=== PATIENT | female | born 1940 | race Caucasian/White ===

== ENCOUNTER → 2016-10-06 | Outpatient (CLI) | payer MEDICARE, BC ==
[~2016-10-06] MED LIST: ATOR10TA65 PO; CALC0.5C4 PO; CALC600T11 PO; MAGN400T22 PO; METO50TA16 PO; MULT1CAP20 PO; UBID1CAP25 PO; VIT1CAPS15 PO
--- NOTE | 2016-10-06 11:30 | RADRPT ---
PROCEDURE: XR right knee. CLINICAL INDICATION: Knee pain TECHNIQUE: AP weightbearing, PA weightbearing, lateral weightbearing and sunrise views are availab le for review. COMPARISON: None available FINDINGS: There is moderate to severe osteoarthrosis involving the lateral tibial femoral compartment and mild osteoarthrosis involving the patellofemoral compartment. This is associated with joint space narrow ing, subchondral sclerosis and osteophytosis. There is otherwise normal mineralization, architecture and alignment. No fractures are identified. No osseous lesions are identified. The soft tissues are unremarkable. IMPRESSION: Moderate to severe osteoarthrosis involving the lateral tibial femoral compartment and mild osteoart hrosis involving the patellofemoral compartment. RPTAT: HGDB .Ronaldo Ryan MD, MD Date Time Electronically viewed and signed by .Ronaldo Ryan MD, on 10/06/2016 11:30 .B/
== END | disposition home or self-care (01) ==
LOC: HKI 09:54
PROVIDERS: ATTEND Orthopaedic Surgery
DX: M25.561 Pain in right knee (principal); M17.11 Unilateral primary osteoarthritis, right knee; Z96.652 Presence of left artificial knee joint
CPT/HCPCS: 73564; G0463

== ENCOUNTER → 2016-10-23 | Outpatient (CLI) | payer MEDICARE, BC ==
--- NOTE | 2016-10-23 16:45 | RADRPT ---
PROCEDURE: Limited x-ray of both lower extremities. CLINICAL INDICATION: Bilateral leg pain. TECHNIQUE: Single frontal view of both lower extremities was obtained from the hips to the calves. COMPARISON: 12/17/2013. FINDINGS: There are bilateral total hip arthroplasties which appears satisfactory. There are moderate degener ative changes of the right knee with valgus deformity. There is a left knee total arthroplasty. IMPRESSION: 1. 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 2. Moderate degenerative changes of the right knee with valgus deformity. RPTAT: QQ .Denny Harris MD, MD Date Time Electronically viewed and signed by .Denny Harris MD, on 10/23/2016 16:45 .R/
== END | disposition home or self-care (01) ==
LOC: HKI 10:22
PROVIDERS: ATTEND Orthopaedic Surgery
DX: M25.561 Pain in right knee (principal); M17.11 Unilateral primary osteoarthritis, right knee; Z96.652 Presence of left artificial knee joint; Z96.643 Presence of artificial hip joint, bilateral
CPT/HCPCS: 77073; G0463; 87081

== ENCOUNTER 2016-10-31 07:00 | Inpatient (IN) | payer MEDICARE, BC ==
[~2016-10-31] VITALS: Ht 167.6 cm; Wt 66.2 kg
[2016-10-31] VITALS (28 sets, daily range): BP systolic 115–176; BP diastolic 55–115; PULSE 68–92; RESP 14–22; Ht 167.6 cm; Wt 66.2 kg
[~2016-10-31 07:00] MED LIST changes: +DEXAMETHASONE 4 MG/ML 1 ML INJ ONE
[2016-10-31] MEDS ORDERED: EXPAREL NOTE (BUPIVICAINE LIPOSOMAL) XX SCH (09:00)
[2016-10-31] MEDS ORDERED: CEFAZOLIN 2GM/50 ML (PMX) 50 ML X1 BEFORE INCISION IVPB ONE (09:00)
[2016-10-31] MEDS ORDERED: SOD CHLORIDE 0.9% IV ONE (09:00)
[2016-10-31] MEDS ORDERED: traMADOL 50 MG TAB X 1 DOSE PO ONE (09:00)
[2016-10-31] MEDS ORDERED: BUPIVACAINE LIPOSOME/PF 266 MG/20 ML VIAL INFIL ONE (09:00)
[2016-10-31] MEDS ORDERED: TRANEXAMIC ACID 680 MG in SOD CHLORIDE 0.9% 100 ML IVPB ONE (09:00)
[2016-10-31] MEDS ORDERED: PAIN COCKTAIL-CEFUROXIME IRR ONE ×7 (09:00)
[2016-10-31] MEDS ORDERED: TRANEXAMIC ACID IV ONE (09:00)
[2016-10-31] MEDS ORDERED: ONDANSETRON 4 MG INJ IV SCH (09:00)
[2016-10-31] MEDS: LACTATED RINGER'S 1,000 ML IV SCH ×3 (09:00→19:00)
[2016-10-31] MEDS ORDERED: oxyCODONE (CR) 10 MG TAB [oxyCONTIN] X1 DOSE PO ONE (09:00)
[2016-10-31] MEDS ORDERED: CELECOXIB 400 MG PO X1 DOSE PO ONE (09:00)
[2016-10-31] MEDS ORDERED: TRANEXAMIC ACID 680 MG in SOD CHLORIDE 0.9% 93.2 ML IV ONE (09:00)
[2016-10-31] MEDS ORDERED: PREGABALIN 300 MG PO X1 PO ONE (09:00)
[2016-10-31] MEDS ORDERED: CALC0.255 PO (11:13)
[2016-10-31] MEDS ORDERED: CALC500T11 PO (11:14)
[2016-10-31] MEDS ORDERED: SODIUM CL BACTERIOSTATIC 30 ML INJ ONE (12:23)
[2016-10-31] MEDS ORDERED: VANCOMYCIN 1 GM INJ ONE (12:23)
[2016-10-31] MEDS ORDERED: POLYMYXIN B 500000 UNIT INJ ONE (12:23)
--- NOTE | 2016-10-31 13:02 | HPN ---
Date/Time of Note Date/Time of Note DATE: 10/31/16 TIME: 13:00 Interval H&P Admission Note Pt. seen H&P reviewed: No system changes No change from H&P on 10/23/16 by RADHA Caldwell MD Oct 31, 2016 13:02
[2016-10-31] MEDS ORDERED: BACITRACIN 50000 UNITS INJ ONE (13:07)
[2016-10-31] MEDS ORDERED: METOCLOPRAMIDE 10 MG INJ ONE (13:21)
[2016-10-31] MEDS ORDERED: MIDAZOLAM 1 MG/ML 2 ML INJ ONE (13:21)
[2016-10-31] MEDS ORDERED: FENTAnyl 50 MCG/ML VIAL ONE (13:22)
[2016-10-31] MEDS ORDERED: CEFAZOLIN 1 GM INJ ONE (13:38)
[2016-10-31] MEDS ORDERED: DEXAMETHASONE 4 MG/ML 1 ML INJ ONE (13:43)
[2016-10-31] MEDS ORDERED: METOCLOPRAMIDE 10 MG INJ IV PRN (14:00)
[2016-10-31] MEDS ORDERED: EPHEDrine SULFATE 50 MG/5 ML SYG IV PRN (14:00)
[2016-10-31] MEDS ORDERED: hydrALAzine 20 MG INJ IV PRN (14:00)
[2016-10-31] MEDS ORDERED: HYDROmorphONE (0.2 MG/ML) 10ML SYG IV PRN ×3 (14:00)
[2016-10-31] MEDS ORDERED: LABETALOL HCL 20MG INJ IV PRN (14:00)
[2016-10-31] MEDS ORDERED: MEPERIDINE 25 MG INJ IV PRN (14:00)
[2016-10-31] MEDS ORDERED: ONDANSETRON 4 MG INJ IV PRN ×2 (14:00→16:30)
[2016-10-31] MEDS ORDERED: DIPHENHYDRAMINE 50 MG INJ IV PRN (14:00)
[2016-10-31] MEDS ORDERED: PROPOFOL 100 ML ONE (15:28)
--- NOTE | 2016-10-31 16:04 | OPR ---
Date/Time of Note Date/Time of Note DATE: 10/31/16 TIME: 15:59 Operative Report Preoperative Diagnosis Right Knee OA Postoperative Diagnosis Same Operation/Procedure Performed Right TKA Surgeon: RADHA SANDOVAL MD hair or beauty salon assistant: DA HOOK Anesthesia: general, spinal Estimated Blood Loss: 50 - 100 ml's Specimens Bone and soft tissue Grafts/Implants Depuy TKA Complications: None RADHA SANDOVAL MD Oct 31, 2016 16:03
[2016-10-31] MEDS: traMADol 50 MG TAB PO SCH (16:25)
[2016-10-31] MEDS: CEFAZOLIN 2 GM/50 ML (PMX) 50 ML IVPB SCH (16:26)
[2016-10-31 16:27] LABS: HEMATOCRIT 36.2 % (37.0-47.0); HEMOGLOBIN 12.1 g/dl (12.0-16.0)
[2016-10-31] MEDS ORDERED: HYDROmorphONE 1 MG/ML SYG IV PRN (16:30)
[2016-10-31] MEDS ORDERED: BISACODYL 10 MG SUPP PR PRN (16:30)
[2016-10-31] MEDS ORDERED: oxyCODONE 5 MG TAB PO PRN ×2 (16:30)
[2016-10-31] MEDS ORDERED: DIPHENHYDRAMINE 25 MG CAP PO PRN (16:30)
[2016-10-31] MEDS ORDERED: NA PHOSPHATE/BIPHOS 133 ML ENEMA PR PRN (16:30)
[2016-10-31] MEDS ORDERED: NACL 0.9% 3 ML SYG IV SCH (16:30)
[2016-10-31] MEDS ORDERED: MAGNESIUM HYDROXIDE 30ML CUP PO PRN (16:30)
[2016-10-31] MEDS ORDERED: ASPIRIN (EC) 325 MG TAB PO ONE (16:30)
[2016-10-31 16:48] LABS: CALCIUM 7.8 mg/dl (8.4-10.2); CREATININE 1.05 mg/dl (0.44-1.00)
--- NOTE | 2016-10-31 17:42 | CONS ---
Date/Time of Note Date/Time of Note DATE: 10/31/16 TIME: 17:37 Assessment/Plan Assessment/Plan Additional Assessment/Plan 1. Stable post op right knee replacement. 2. Hx hbp, to cont BP meds 3. 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 Eval for signs and sxs dvt daily Consultation Date/Type/Reason Admit Date/Time Oct 31, 2016 at 10:04 Date of Consultation: Oct 31, 2016 Type of Consultation: medical post op Reason for Consultation Mangement of BP, thryoid dz and hypoparathyroidism, post op right knee replacement Hx of Present Illness Pt is now post op in recovery and medical consult has been requested following right knee repacement Respiratory: No cough, No shortness of breath Cardiovascular: No chest pain Gastrointestinal: no complaints Genitourinary: no complaints, other (lazaro is in place) Past Surgical History Past Surgical Hx: other (Hx hypothyroidism, hypoparathryoidism, kidney stones, left knee replacement, bilat hip replacement) Family History Significant Family History: other (+ for coronary dz and chf) Social History Smoking Status: Former smoker Exam/Review of Systems Vital Signs Vitals Vital Signs Date Time Temp Pulse Resp B/P Pulse Ox O2 Delivery O2 Flow Rate FiO2 10/31/16 16:45 74 18 154/76 100 Nasal Cannula 2.0 10/31/16 15:45 98.9 Results Result Diagram: 10/31/16 1610 10/31/16 1610 Results 24 hrs Laboratory Tests Test 10/31/16 16:10 Hemoglobin 12.1 Hematocrit 36.2 L Sodium Level 139 Potassium Level 4.0 Chloride Level 110 Carbon Dioxide Level 23 Anion Gap 10 Blood Urea Nitrogen 30 H Creatinine 1.05 H Glucose Level 122 Calcium Level 7.8 L Medications Medications Current Medications Lactated Ringer's (Lr) 1,000 ml @ 100 mls/hr Q10H IV Last administered on 10/31 09:00; Admin Dose 100 MLS/HR; Start 10/31/16 at 09:00; Stop 10/31/16 at 20 :00 Miscellaneous Information 1 ea NOTE XX ; Start 10/31/16 at 09:00; Stop 10/31/16 at 20:00 Ondansetron HCl (Zofran Inj) 4 mg ONCE IV Last administered on 10/31/16 11:42 ; Admin Dose 4 MG; Start 10/31/16 at 09:00; Stop 10/31/16 at 20:00 Atorvastatin Calcium (Lipitor) 10 mg HS PO ; Start 10/31/16 at 21:00 Calcitriol (Rocaltrol) 0.25 mcg BID PO ; Start 10/31/16 at 21:00 Calcium Carbonate (Oyster Shell Calcium) 1.25 gm BID PO ; Start 10/31/16 at 21: 00 Metoprolol Succinate 50 mg 50 mg DAILY PO ; Start 11/01/16 at 09:00 Lactated Ringer's (Lr) 1,000 ml @ 125 mls/hr Q8H IV Last administered on 16:26; Admin Dose 125 MLS/HR; Start 10/31/16 at 16:04 Celecoxib 200 mg 200 mg DAILY PO ; Start 11/01/16 at 09:00 Acetaminophen (Ofirmev 1000mg/ 100ml Iv) 100 ml @ 400 mls/hr Q6 IVPB ; Start at 18:00; Stop 11/01/16 at 17:59 Tramadol HCl (Ultram) 50 mg Q6 PO Last administered on 10/31/16 16:25; Admin Dose 50 MG; Start 10/31/16 at 12:00; Stop 11/03/16 at 11:59 Oxycodone HCl (Roxicodone) 5 mg Q4H PRN PO PAIN LEVEL 1-3; Start 10/31/16 at 16 :30 Oxycodone HCl (Roxicodone) 10 mg Q4H PRN PO PAIN LEVEL 4-7; Start 10/31/16 at 16:30 Hydromorphone HCl 1 mg 1 mg Q3H PRN IV PAIN LEVEL 8-10; Start 10/31/16 at 16:30 Cefazolin Sodium/ Dextrose (Ancef 2 Gm/50 ml (Pmx)) 50 ml @ 100 mls/hr Q8H IVPB Last administered on 10/31/16 16:26; Admin Dose 100 MLS/HR; Start at 16:30; Stop 11/01/16 at 08:59 Ondansetron HCl (Zofran Inj) 4 mg Q6H PRN IV NAUSEA AND/OR VOMITING; Start at 16:30 Bisacodyl (Dulcolax Supp) 10 mg Q12H PRN [place] CONSTIPATION; Start 10/31/16 at 16: 30 Magnesium Hydroxide (Milk Of Mag) 30 ml BID PRN PO CONSTIPATION; Start at 16:30 Sodium Biphosphate/ Sodium Phosphate (Fleet Enema) 133 ml DAILY PRN [place] CONSTIPATION; Start 10/31/16 at 16:30 Docusate Sodium (Colace) 100 mg BID PO ; Start 10/31/16 at 21:00 Diphenhydramine HCl (Benadryl) 25 mg Q6H PRN PO PRURITUS; Start 10/31/16 at 16: 30 Aspirin (Ecotrin) 325 mg BID PO ; Start 11/01/16 at 09:00 Pantoprazole (Protonix Tab) 40 mg BID@06,18 PO ; Start 10/31/16 at 18:00 Pregabalin (Lyrica) 50 mg BID PO ; Start 10/31/16 at 21:00 CRISTAL HAWKINS MD Oct 31, 2016 17:42
[2016-10-31] MEDS: PANTOPRAZOLE (EC) 40 MG TAB PO SCH (18:00)
--- NOTE | 2016-10-31 19:01 | RADRPT ---
PROCEDURE: X-ray right knee CLINICAL INDICATION: The patient is status post total knee arthroplasty. TECHNIQUE: 2 views right knee COMPARISON: None FINDINGS: Total right knee arthroplasty with patellar resurfacing is new, without hardware complication. Post surgical air and fluid over the anterior right knee, with post surgical drain in place. No acute f racture or dislocation. IMPRESSION: No evident hardware complication or acute fracture. RPTAT: UU. Physician Cass Date Time Electronically viewed and signed by Too Santillan Physician on 10/31/2016 19:01 RS/
[2016-10-31] MEDS: ACETAMINOPHEN 1000MG/100ML IV 100 ML IVPB SCH (19:35)
[2016-10-31] MEDS ORDERED: CALCIUM CARBONATE 1.25 GM TAB PO SCH (21:00)
[2016-10-31] MEDS: CALCITRIOL 0.25 MCG CAP PO SCH (21:29)
[2016-10-31] MEDS: ATORVASTATIN 10 MG TAB PO SCH (21:29)
[2016-10-31] MEDS: METOPROLOL (XL) 25 MG TAB PO SCH (21:30)
[2016-10-31] MEDS: DOCUSATE SODIUM 100 MG CAP PO SCH (21:30)
[2016-10-31] MEDS: PREGABALIN 50 MG CAP PO SCH (21:35)
[2016-11-01] MEDS: LACTATED RINGER'S 1,000 ML IV SCH ×4 (00:04→21:12)
[2016-11-01] MEDS: CEFAZOLIN 2 GM/50 ML (PMX) 50 ML IVPB SCH ×2 (00:29→09:25)
[2016-11-01] MEDS: ACETAMINOPHEN 1000MG/100ML IV 100 ML IVPB SCH ×3 (01:03→12:37)
[2016-11-01 05:35] LABS: HEMATOCRIT 35.6 % (37.0-47.0); HEMOGLOBIN 11.9 g/dl (12.0-16.0)
[2016-11-01] MEDS: PANTOPRAZOLE (EC) 40 MG TAB PO SCH ×2 (06:02→17:58)
[2016-11-01] MEDS: traMADol 50 MG TAB PO SCH ×5 (06:02→23:55)
[2016-11-01 06:13] LABS: MAGNESIUM 1.6 mg/dl (1.7-2.5); PHOSPHORUS 6.3 mg/dl (2.5-4.9)
[2016-11-01 06:15] LABS: CALCIUM 7.3 mg/dl (8.4-10.2); CREATININE 1.03 mg/dl (0.44-1.00); POTASSIUM 4.5 mmol/L (3.5-5.1)
[2016-11-01 08:12] VITALS: BP 133/64; RESP 18
--- NOTE | 2016-11-01 08:34 | CONS ---
Date/Time of Note Date/Time of Note DATE: 11/01/16 TIME: 08:32 Assessment/Plan Assessment/Plan Chief Complaint/Hosp Course Pt is now post op in recovery and medical consult has been requested following right knee repacement Problems: Additional Assessment/Plan 1. Stable post op right knee replacement. 2. Hx hbp, controlled 3. Hx hypoparathryoidism, Mild red Ca, will inc supplement and replete Mag Consultation Date/Type/Reason Admit Date/Time Oct 31, 2016 at 10:04 Initial Consult Date 10/31/16 Type of Consultation: medical post op Detailed Summary Respiratory: No cough, No shortness of breath Cardiovascular: No chest pain Gastrointestinal: no complaints Genitourinary: no complaints Musculoskeletal: bone/joint pain (mild right knee pain) Exam/Review of Systems Vital Signs Vitals Vital Signs Date Time Temp Pulse Resp B/P Pulse Ox O2 Delivery O2 Flow Rate FiO2 11/01/16 08:12 98.3 67 18 133/64 100 10/31/16 21:30 Nasal Cannula 2.0 Intake and Output 10/31/16 10/31/16 11/01/16 14:59 22:59 06:59 Intake Total 1800 ml 220 ml 1550 ml Output Total 10 ml 560 ml 900 ml Balance 1790 ml -340 ml 650 ml Exam Neck: No jvd Respiratory: clear to auscultation Cardiovascular: regular rate and rhythm Gastrointestinal: soft Extremities: No edema (and no calf tend) Results Result Diagram: 11/01/16 0430 11/01/16 0430 Results 24 hrs Laboratory Tests Test 10/31/16 16:10 11/01/16 04:30 11/01/16 05:35 Hemoglobin 12.1 11.9 L Hematocrit 36.2 L 35.6 L Sodium Level 139 138 Potassium Level 4.0 4.5 Chloride Level 110 108 Carbon Dioxide Level 23 23 Anion Gap 10 12 Blood Urea Nitrogen 30 H 29 H Creatinine 1.05 H 1.03 H Glucose Level 122 105 Calcium Level 7.8 L 7.3 L Phosphorus Level 6.3 H Magnesium Level 1.6 L Lab Scanned Report REFERENCE LAB Medications Medications Current Medications Atorvastatin Calcium (Lipitor) 10 mg HS PO Last administered on 10/31/16t 21:29 ; Admin Dose 10 MG; Start 10/31/16 at 21:00 Calcitriol (Rocaltrol) 0.25 mcg BID PO Last administered on 10/31/16 21:29; Admin Dose 0.25 MCG; Start 10/31/16 at 21:00 Calcium Carbonate 1.25 gm 1.25 gm BID PO Last administered on 10/31/16 21:29; Admin Dose 1.25 GM; Start 10/31/16 at 21:00 Lactated Ringer's (Lr) 1,000 ml @ 125 mls/hr Q8H IV Last administered on 02:20; Admin Dose 125 MLS/HR; Start 10/31/16 at 16:04 Celecoxib 200 mg 200 mg DAILY PO ; Start 11/01/16 at 09:00 Acetaminophen (Ofirmev 1000mg/ 100ml Iv) 100 ml @ 400 mls/hr Q6 IVPB Last administered on 11/01/16 06:02; Admin Dose 400 MLS/HR; Start 10/31/16 at 18:00 ; Stop 11/01/16 at 17:59 Tramadol HCl (Ultram) 50 mg Q6 PO Last administered on 11/01/16 06:02; Admin Dose 50 MG; Start 10/31/16 at 12:00; Stop 11/03/16 at 11:59 Oxycodone HCl (Roxicodone) 5 mg Q4H PRN PO PAIN LEVEL 1-3; Start 10/31/16 at 16 :30 Oxycodone HCl (Roxicodone) 10 mg Q4H PRN PO PAIN LEVEL 4-7; Start 10/31/16 at 16:30 Hydromorphone HCl 1 mg 1 mg Q3H PRN IV PAIN LEVEL 8-10; Start 10/31/16 at 16:30 Cefazolin Sodium/ Dextrose (Ancef 2 Gm/50 ml (Pmx)) 50 ml @ 100 mls/hr Q8H IVPB Last administered on 11/01/16 00:29; Admin Dose 100 MLS/HR; Start at 16:30; Stop 11/01/16 at 08:59 Ondansetron HCl (Zofran Inj) 4 mg Q6H PRN IV NAUSEA AND/OR VOMITING; Start at 16:30 Bisacodyl (Dulcolax Supp) 10 mg Q12H PRN [place] CONSTIPATION; Start 10/31/16 at 16: 30 Magnesium Hydroxide (Milk Of Mag) 30 ml BID PRN PO CONSTIPATION; Start at 16:30 Sodium Biphosphate/ Sodium Phosphate (Fleet Enema) 133 ml DAILY PRN [place] CONSTIPATION; Start 10/31/16 at 16:30 Docusate Sodium (Colace) 100 mg BID PO Last administered on 10/31/16 21:30; Admin Dose 100 MG; Start 10/31/16 at 21:00 Diphenhydramine HCl (Benadryl) 25 mg Q6H PRN PO PRURITUS; Start 10/31/16 at 16: 30 Aspirin (Ecotrin) 325 mg BID PO ; Start 11/01/16 at 09:00 Pantoprazole (Protonix Tab) 40 mg BID@,18 PO Last administered on 11/01/16 06:02; Admin Dose 40 MG; Start 10/31/16 at 18:00 Pregabalin (Lyrica) 50 mg BID PO Last administered on 10/31/16 21:35; Admin Dose 50 MG; Start 10/31/16 at 21:00 Metoprolol Succinate (Toprol Xl) 25 mg BID PO Last administered on 10/31/16 21 :30; Admin Dose 25 MG; Start 10/31/16 at 21:00 CRISTAL HAWKINS MD Nov 01, 2016 08:34
--- NOTE | 2016-11-01 08:45 | PN ---
Date/Time of Note Date/Time of Note DATE: 11/01/16 TIME: 08:44 Assessment/Plan Lines/Catheters IV Catheter Type (from Nrsg): Peripheral IV Kruse in Place (from Nrsg): Yes Assessment/Plan Assessment/Plan POD # 1. Stable. -Drain removed -OOB with PT -Pain meds -ASA/SCDs -D/C to home tomorrow or Sunday Subjective 24 Hr Interval Summary Comfortable. Minimal pain. Exam/Review of Systems Vital Signs Vitals Vital Signs Date Time Temp Pulse Resp B/P Pulse Ox O2 Delivery O2 Flow Rate FiO2 11/01/16 08:12 98.3 67 18 133/64 100 10/31/16 21:30 Nasal Cannula 2.0 Intake and Output 10/31/16 10/31/16 11/01/16 15:00 23:00 07:00 Intake Total 1800 ml 220 ml 1550 ml Output Total 10 ml 560 ml 900 ml Balance 1790 ml -340 ml 650 ml Exam Free Text/Dictation Hemovac: 170 Dressing dry 5/5 Tibialis Anterior, EHL, Gastroc Soleus, Peroneals Normal sensation Palpable DP/PT, CR < 2 Sec No distal edema Results Result Diagram: 11/01/16 0430 11/01/16 0430 RADHA SANDOVAL MD Nov 01, 2016 08:45
[2016-11-01] MEDS ORDERED: METOPROLOL (XL) 50 MG TAB PO SCH (09:00)
[2016-11-01] MEDS: DOCUSATE SODIUM 100 MG CAP PO SCH ×2 (09:25→21:02)
[2016-11-01] MEDS: ASPIRIN (EC) 325 MG TAB PO SCH ×2 (09:26→21:06)
[2016-11-01] MEDS: METOPROLOL (XL) 25 MG TAB PO SCH ×2 (09:26→21:00)
[2016-11-01] MEDS: CALCITRIOL 0.25 MCG CAP PO SCH ×2 (09:26→21:06)
[2016-11-01] MEDS: CALCIUM CARBONATE 1.25 GM TAB PO SCH ×3 (09:26→21:03)
[2016-11-01] MEDS: PREGABALIN 50 MG CAP PO SCH ×2 (09:26→21:06)
[2016-11-01] MEDS: CELECOXIB 200 MG CAP PO SCH (09:31)
[2016-11-01] MEDS ORDERED: MAGNESIUM SULFATE 3 GM in SOD CHLORIDE 0.9% 100 ML IVPB ONE (10:00)
[2016-11-01 10:05] LABS: ADD UMIC YES; UR ASCORBIC ACID NEGATIVE (NEGATIVE); UR BILIRUBIN (Dip) NEGATIVE (NEGATIVE); UR BLOOD (Dip) 2+ mg/dL (NEGATIVE); UR CLARITY CLEAR (CLEAR); UR COLOR YELLOW (YELLOW); UR GLUCOSE (Dip) NEGATIVE (NEGATIVE); UR KETONES (Dip) NEGATIVE (NEGATIVE); UR LEUKOCYTE ESTERASE (Dip) NEGATIVE Leu/ul (NEGATIVE); UR NITRITE (Dip) NEGATIVE (NEGATIVE); UR RBC 17 /HPF (0-5); UR SPECIFIC GRAVITY (Dip) 1.017 (1.003-1.030); UR TOTAL PROTEIN (Dip) NEGATIVE (NEGATIVE); UR UROBILINOGEN (Dip) NEGATIVE (NEGATIVE)
--- NOTE | 2016-11-01 12:52 | OPR ---
Date/Time of Note Date/Time of Note DATE: 11/01/16 TIME: 12:30 Operative Report Preoperative Diagnosis Right Knee OA Postoperative Diagnosis Same Operation Performed Right TKA Surgeon: RADHA SANDOVAL MD anesthesiology physician assistant: DA HOOK Anesthesia: general, spinal Estimated Blood Loss: 50 - 100 ml's Specimens Bone and soft tissue Grafts/Implants Depuy TKA Complications: None Procedure Description DATE: 10/31/16 PREOPERATIVE DIAGNOSIS: Right Knee Osteoarthritis POSTOPERATIVE DIAGNOSIS: Right Knee Osteoarthritis OPERATION PERFORMED: Right total knee arthroplasty SURGEON: Radha Sandoval MD NETWORK SYSTEMS OPERATOR: WALE Talbert COMPONENTS USED: Depuy Attune Size 5 Femur, 4 Tibial baseplate, 7 mm polyethylene liner, 35 Patella ANESTHESIA: Spinal plus general endotracheal intubation, plus femoral nerve catheter. ANESTHESIOLOGIST: Radha Noble M.D. TOURNIQUET TIME: 51 minutes. ESTIMATED BLOOD LOSS: 50 mL INTRAVENOUS FLUIDS: 1,900 mL SPECIMENS: Bone and soft tissue. DRAINS: Hemovac x1. COMPLICATIONS: None. DISPOSITION: The patient tolerated the procedure well and was taken to the recovery room in stable condition. INDICATIONS: The patient is a 76 year old woman with sever osteoarthritis of the right knee who has failed nonsurgical means of treatment to control her pain. I felt the patient would benefit from a total knee arthroplasty. The risks, benefits, and alternatives of the procedure were explained in detail to the patient. I explained the risks of the surgery to include but not be limited to, bleeding and possible need for blood transfusion; infection; pain; stiffness; neurovascular injury with possible numbness, weakness, and/or paralysis anywhere from the knee down to the toes; fracture; instability; dislocation; wear and/or loosening of the prosthesis and possible need for future revision; blood clots; pulmonary embolism; and anesthetic complications such as heart attack, stroke, GI bleed, pneumonia, and/or . Ample time was allowed for the patient to ask questions, all of which were addressed and answered. The patient understood the risks involved and wished to proceed. Informed consent was signed prior to the procedure. PROCEDURE: The patient's right knee was initialed with a marking pen in the preoperative area to identify the correct operative site. The patient was brought to the [facility] where a spinal anesthetic was administered. The patient was then anesthetized and intubated. A Kruse catheter was placed. A timeout was performed to confirm that the @@ leg was the correct operative site. The patient was given 2 g of Ancef within one hour prior to the procedure. A tourniquet was placed on the operative proximal thigh. The operative knee and lower extremity were prepped and draped in the usual sterile fashion. The operative lower extremity was elevated and exsanguinated with an Esmarch tourniquet. The proximal thigh tourniquet was inflated to 300 mmHg. The knee was flexed. A midline incision was made and carried down through the subcutaneous tissue and fat with sharp dissection. Limited medial and lateral flaps were raised. A medial parapatellar approach was performed. Synovial fluid was normal in color and consistency. The patella was everted and the knee flexed. There were severe tricompartmental osteoarthritic changes noted. A medial release was performed at the joint line to the midcoronal plane. The ACL and PCL and remnants of the menisci were excised. The stepped drill was used to open up the femoral canal which was irrigated and sucked dry. The intramedullary guide jatin was passed up the femur, and the distal cutting block was pinned into place for a 6 degree valgus cut, taking 10 mm of bone off distally. The oscillating saw was used to make the cut. The tibia was subluxed anteriorly. The tibial cutoff jig was placed over the center of the talus distally and over the junction of the medial and middle third of the tibial tubercle proximally. The guide was pinned into place and the oscillating saw was used to make the cut. The tibia was sized. The extension gap was checked and accommodated a 7 mm spacer block with the knee in full extension. There was no varus or valgus instability. At this point, the femur was sized with the posterior referencing guide. Two holes were drilled in 3 degrees of external rotation. The two holes were in line with the transepicondylar axis, perpendicular to Rhame's line, and in line with the tibial cutoff jig brought up with the knee flexed 90 degrees and tensed with 2 lamina spreaders, suggesting the femoral rotation was correct. The four-in-one cutting block was pinned into place. The anterior and posterior cuts and chamfer cuts were made with the oscillating saw. The flexion gap was checked and accommodated the 7 mm spacer block at 90 degrees. There was no varus or valgus instability, suggesting the flexion and extension gaps were now equal. The central box was cut out on the femur. The tibia was drilled and punched in proper rotation. Trial components were placed into position with a trial insert. The patella was cut down to 14 mm and sized. Three holes were drilled and the trial button placed in position. With all the trials now in place, the knee was taken through range of motion and came to full extension as evidenced by the fact that with the foot on my abdomen and axial loading, there was no tendency for the knee to flex. The knee was able to be flexed to 125 degrees with good patellar tracking with no lateral tilt or subluxation. At this point, I was satisfied with the overall range of motion, stability, and patellar tracking. The trials were removed. The real components were opened. Two bags of cement were mixed, one with and one without premixed antibiotic. The knee was irrigated with antibiotic saline and sucked dry. Once the cement was in a doughy stage, the real components were cemented into place. The knee was held in full extension, and the patellar component was held with a patellar clamp. All excess cement was removed with curettes. As the cement was hardening, the synovial/capsular layer was infiltrated with a mixture of 150 mg of 0.5% Bupivacaine, 8 mg of Duramorph, 300 mcg of epinephrine, 30 mg of Toradol, 100 mcg of clonidine, 750 mg of cefuroxime and 86 mL of normal saline, followed by an injection of 266 mg of liposomal Bupivacaine. A Hemovac drain was placed in the deep portion of the wound and brought out the anterolateral thigh. Once the cement was completely hardened, the trial liner was removed, and the real insert was opened. The tourniquet was let down, and there was good hemostasis. The knee was then irrigated with a mixture of betadine/saline and then antibiotic saline with pulsatile lavage. The real insert was impacted into the tibia and reduced onto to the femur. The arthrotomy was closed with a few interrupted #1 Ethibond in a figure-of- eight fashion, and then closed in a watertight fashion with a running #2 Stratafix suture. Knee flexion was checked against gravity and came to 125 degrees. The subcutaneous layer was irrigated and closed with 2-0 Statafix, and then 3-0 Vicryl and then vimal on the skin. The wound was covered with an occlusive dressing, and secured with cast padding and a bias dressing. The drain was secured with 3-0 nylon. The sponge and needle counts were correct at the end of the case. The patient was then awakened, extubated, and taken to the recovery room in stable condition. ARDHA SANDOVAL MD Nov 01, 2016 12:52
--- NOTE | 2016-11-01 13:16 | PN ---
Date/Time of Note Date/Time of Note DATE: 11/01/16 TIME: 13:14 Assessment/Plan VTE Prophylaxis VTE Prophylaxis Intervention: ambulation Lines/Catheters IV Catheter Type (from Nrsg): Peripheral IV Urinary Cath still in place: Yes Subjective 24 Hr Interval Summary Free Text/Dictation Anesthesia Note: A 76 year female s/p TKR under [place] and spinal POD #1 ia doing fine. no pain, N/V , itching, back pain, headache. back is clean. ambulating today. care per surgery Exam/Review of Systems Vital Signs Vitals Vital Signs Date Time Temp Pulse Resp B/P Pulse Ox O2 Delivery O2 Flow Rate FiO2 11/01/16 08:12 98.3 67 18 133/64 100 10/31/16 21:30 Nasal Cannula 2.0 Intake and Output 10/31/16 10/31/16 11/01/16 15:00 23:00 07:00 Intake Total 1800 ml 220 ml 1550 ml Output Total 10 ml 560 ml 900 ml Balance 1790 ml -340 ml 650 ml Results Result Diagram: 11/01/16 0430 11/01/16 0430 Results 24 hrs Laboratory Tests Test 10/31/16 16:10 11/01/16 04:30 11/01/16 05:35 11/01/16 06:00 Hemoglobin 12.1 11.9 L Hematocrit 36.2 L 35.6 L Sodium Level 139 138 Potassium Level 4.0 4.5 Chloride Level 110 108 Carbon Dioxide Level 23 23 Anion Gap 10 12 Blood Urea Nitrogen 30 H 29 H Creatinine 1.05 H 1.03 H Glucose Level 122 105 Calcium Level 7.8 L 7.3 L Phosphorus Level 6.3 H Magnesium Level 1.6 L Lab Scanned Report REFERENCE LAB Urine Color YELLOW Urine Clarity CLEAR Urine pH 6.0 Urine Specific [place] 1.017 Urine Ketones NEGATIVE Urine Nitrite NEGATIVE Urine Bilirubin NEGATIVE Urine Urobilinogen NEGATIVE Urine Leukocyte Esterase NEGATIVE Urine Microscopic RBC 17 H Urine Microscopic WBC 2 Urine Hemoglobin 2+ H Urine Glucose NEGATIVE Urine Total Protein NEGATIVE Medications Medications Current Medications Atorvastatin Calcium (Lipitor) 10 mg HS PO Last administered on 10/31/16 21:29 ; Admin Dose 10 MG; Start 10/31/16 at 21:00 Calcitriol 0.25 mcg 0.25 mcg BID PO Last administered on 11/01/16 09:26; Admin Dose 0.25 MCG; Start 10/31/16 at 21:00 Lactated Ringer's (Lr) 1,000 ml @ 125 mls/hr Q8H IV Last administered on 02:20; Admin Dose 125 MLS/HR; Start 10/31/16 at 16:04 Celecoxib 200 mg 200 mg DAILY PO Last administered on 11/01/16 09:31; Admin Dose 200 MG; Start 11/01/16 at 09:00 Acetaminophen (Ofirmev 1000mg/ 100ml Iv) 100 ml @ 400 mls/hr Q6 IVPB Last administered on 11/01/16 12:37; Admin Dose 400 MLS/HR; Start 10/31/16 at 18:00 ; Stop 11/01/16 at 17:59 Tramadol HCl (Ultram) 50 mg Q6 PO Last administered on 11/01/16 12:36; Admin Dose 50 MG; Start 10/31/16 at 12:00; Stop 11/03/16 at 11:59 Oxycodone HCl (Roxicodone) 5 mg Q4H PRN PO PAIN LEVEL 1-3; Start 10/31/16 at 16 :30 Oxycodone HCl (Roxicodone) 10 mg Q4H PRN PO PAIN LEVEL 4-7; Start 10/31/16 at 16:30 Hydromorphone HCl (Dilaudid) 1 mg Q3H PRN IV PAIN LEVEL 8-10; Start 10/31/16 at 16:30 Ondansetron HCl (Zofran Inj) 4 mg Q6H PRN IV NAUSEA AND/OR VOMITING; Start at 16:30 Bisacodyl (Dulcolax Supp) [address] CONSTIPATION; Start 10/31/16 at 16: 30 Magnesium Hydroxide (Milk Of Mag) 30 ml BID PRN PO CONSTIPATION; Start at 16:30 Sodium Biphosphate/ Sodium Phosphate (Fleet Enema) [address] CONSTIPATION; Start 10/31/16 at 16:30 Docusate Sodium (Colace) 100 mg BID PO Last administered on 11/01/16 09:25; Admin Dose 100 MG; Start 10/31/16 at 21:00 Diphenhydramine HCl (Benadryl) 25 mg Q6H PRN PO PRURITUS; Start 10/31/16 at 16: 30 Aspirin (Ecotrin) 325 mg BID PO Last administered on 11/01/16 09:26; Admin Dose 325 MG; Start 11/01/16 at 09:00 Pantoprazole (Protonix Tab) 40 mg BID@06,18 PO Last administered on 11/01/16 06:02; Admin Dose 40 MG; Start 10/31/16 at 18:00 Pregabalin (Lyrica) 50 mg BID PO Last administered on 11/01/16 09:26; Admin Dose 50 MG; Start 10/31/16 at 21:00 Metoprolol Succinate (Toprol Xl) 25 mg BID PO Last administered on 11/01/16 09 :26; Admin Dose 25 MG; Start 10/31/16 at 21:00 Calcium Carbonate (Oyster Shell Calcium) 1.25 gm TID PO Last administered on 12:36; Admin Dose 1.25 GM; Start 11/01/16 at 09:00 GALLITO EDWARD MD Nov 01, 2016 13:16
[2016-11-01 20:26] VITALS: BP 140/63; RESP 18
[2016-11-01] MEDS: ATORVASTATIN 10 MG TAB PO SCH (21:07)
[2016-11-02 05:18] LABS: HEMATOCRIT 32.5 % (37.0-47.0)
[2016-11-02 05:44] LABS: MAGNESIUM 2.2 mg/dl (1.7-2.5)
[2016-11-02 05:50] LABS: POTASSIUM 4.3 mmol/L (3.5-5.1)
[2016-11-02 05:51] LABS: CALCIUM 7.8 mg/dl (8.4-10.2); CREATININE 1.1 mg/dl (0.44-1.00)
[2016-11-02] MEDS: PANTOPRAZOLE (EC) 40 MG TAB PO SCH ×2 (06:15→17:29)
[2016-11-02] MEDS: traMADol 50 MG TAB PO SCH ×3 (06:15→17:29)
[2016-11-02] MEDS: LACTATED RINGER'S 1,000 ML IV SCH ×2 (08:04→15:22)
[2016-11-02 08:16] VITALS: BP 149/67; RESP 18
[2016-11-02] MEDS: CALCIUM CARBONATE 1.25 GM TAB PO SCH ×3 (09:07→20:51)
[2016-11-02] MEDS: ASPIRIN (EC) 325 MG TAB PO SCH ×2 (09:07→20:52)
[2016-11-02] MEDS: DOCUSATE SODIUM 100 MG CAP PO SCH ×2 (09:07→20:51)
[2016-11-02] MEDS: PREGABALIN 50 MG CAP PO SCH ×2 (09:07→20:52)
[2016-11-02] MEDS: METOPROLOL (XL) 25 MG TAB PO SCH ×2 (09:08→20:52)
[2016-11-02] MEDS: CALCITRIOL 0.25 MCG CAP PO SCH ×2 (09:08→20:51)
[2016-11-02] MEDS: CELECOXIB 200 MG CAP PO SCH (09:08)
--- NOTE | 2016-11-02 11:47 | CONS ---
Date/Time of Note Date/Time of Note DATE: 11/02/16 TIME: 11:46 Assessment/Plan Assessment/Plan Chief Complaint/Hosp Course Pt is now post op in recovery and medical consult has been requested following right knee repacement Problems: Additional Assessment/Plan 1. Stable post op right knee replacement, doing well 2. Hx hbp, controlled 3. 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 Consultation Date/Type/Reason Admit Date/Time Oct 31, 2016 at 10:04 Initial Consult Date 10/31/16 Type of Consultation: medical post op Detailed Summary Respiratory: No shortness of breath Cardiovascular: No chest pain Gastrointestinal: no complaints Genitourinary: no complaints Musculoskeletal: bone/joint pain (mild right knee discomfort) Exam/Review of Systems Vital Signs Vitals Vital Signs Date Time Temp Pulse Resp B/P Pulse Ox O2 Delivery O2 Flow Rate FiO2 11/02/16 08:16 98.4 67 18 149/67 99 10/31/16 21:30 Nasal Cannula 2.0 Intake and Output 11/01/16 11/01/16 11/02/16 15:00 23:00 07:00 Intake Total 256 ml 2290 ml 2000 ml Balance 256 ml 2290 ml 2000 ml Exam Neck: No jvd Respiratory: clear to auscultation Cardiovascular: regular rate and rhythm Extremities: No edema (and no calf tend) Results Result Diagram: 11/02/16 0420 11/02/16 0420 Results 24 hrs Laboratory Tests Test 11/02/16 04:20 Hemoglobin 11.0 L Hematocrit 32.5 L Sodium Level 140 Potassium Level 4.3 Chloride Level 108 Carbon Dioxide Level 26 Anion Gap 10 Blood Urea Nitrogen 35 H Creatinine 1.10 H Glucose Level 95 Calcium Level 7.8 L Phosphorus Level 4.0 # Magnesium Level 2.2 Medications Medications Current Medications Atorvastatin Calcium (Lipitor) 10 mg HS PO Last administered on 11/01/16 21:07 ; Admin Dose 10 MG; Start 10/31/16 at 21:00 Calcitriol 0.25 mcg 0.25 mcg BID PO Last administered on 11/02/16 09:08; Admin Dose 0.25 MCG; Start 10/31/16 at 21:00 Lactated Ringer's (Lr) 1,000 ml @ 125 mls/hr Q8H IV Last administered on 21:12; Admin Dose 125 MLS/HR; Start 10/31/16 at 16:04 Celecoxib (Celebrex) 200 mg DAILY PO Last administered on 11/02/16 09:08; Admin Dose 200 MG; Start 11/01/16 at 09:00 Tramadol HCl (Ultram) 50 mg Q6 PO Last administered on 11/02/16 06:15; Admin Dose 50 MG; Start 10/31/16 at 12:00; Stop 11/03/16 at 11:59 Oxycodone HCl (Roxicodone) 5 mg Q4H PRN PO PAIN LEVEL 1-3; Start 10/31/16 at 16 :30 Oxycodone HCl (Roxicodone) 10 mg Q4H PRN PO PAIN LEVEL 4-7; Start 10/31/16 at 16:30 Hydromorphone HCl (Dilaudid) 1 mg Q3H PRN IV PAIN LEVEL 8-10; Start 10/31/16 at 16:30 Ondansetron HCl (Zofran Inj) 4 mg Q6H PRN IV NAUSEA AND/OR VOMITING; Start at 16:30 Bisacodyl (Dulcolax Supp) 10 mg Q12H PRN [place] CONSTIPATION; Start 10/31/16 at 16: 30 Magnesium Hydroxide (Milk Of Mag) 30 ml BID PRN PO CONSTIPATION; Start at 16:30 Sodium Biphosphate/ Sodium Phosphate (Fleet Enema) 133 ml DAILY PRN DE CONSTIPATION; Start 10/31/16 at 16:30 Docusate Sodium (Colace) 100 mg BID PO Last administered on 11/02/16 09:07; Admin Dose 100 MG; Start 10/31/16 at 21:00 Diphenhydramine HCl (Benadryl) 25 mg Q6H PRN PO PRURITUS; Start 10/31/16 at 16: 30 Aspirin (Ecotrin) 325 mg BID PO Last administered on 11/02/16 09:07; Admin Dose 325 MG; Start 11/01/16 at 09:00 Pantoprazole (Protonix Tab) 40 mg BID@18 PO Last administered on 11/02/16 06:15; Admin Dose 40 MG; Start 10/31/16 at 18:00 Pregabalin (Lyrica) 50 mg BID PO Last administered on 11/02/16 09:07; Admin Dose 50 MG; Start 10/31/16 at 21:00 Metoprolol Succinate (Toprol Xl) 25 mg BID PO Last administered on 11/02/16 09 :08; Admin Dose 25 MG; Start 10/31/16 at 21:00 Calcium Carbonate (Oyster Shell Calcium) 1.25 gm TID PO Last administered on 09:07; Admin Dose 1.25 GM; Start 11/01/16 at 09:00 CRISTAL HAWKINS MD Nov 02, 2016 11:47
--- NOTE | 2016-11-02 20:05 | PN ---
Date/Time of Note Date/Time of Note DATE: 11/02/16 TIME: 20:04 Assessment/Plan Lines/Catheters IV Catheter Type (from Nrsg): Peripheral IV Kruse in Place (from Nrsg): No Assessment/Plan Assessment/Plan POD # 2. Stable. -OOB with PT -Pain meds -ASA/SCDs -Plan for d/c to home tomorrow Subjective 24 Hr Interval Summary Doing well. Some pain, but well controlled with oral pain meds. Exam/Review of Systems Vital Signs Vitals Vital Signs Date Time Temp Pulse Resp B/P Pulse Ox O2 Delivery O2 Flow Rate FiO2 11/02/16 08:16 98.4 67 18 149/67 99 10/31/16 21:30 Nasal Cannula 2.0 Intake and Output 11/01/16 11/01/16 11/02/16 15:00 23:00 07:00 Intake Total 256 ml 2290 ml 2000 ml Balance 256 ml 2290 ml 2000 ml Exam Free Text/Dictation Dressing dry Incision clean, dry, and intact without redness or drainage 5/5 Tibialis Anterior, EHL, Gastroc Soleus, Peroneals Normal sensation Palpable DP/PT, CR < 2 Sec No distal edema Results Result Diagram: 11/02/16 0420 11/02/16 0420 RADHA SANDOVAL MD Nov 02, 2016 20:05
[2016-11-02] MEDS ORDERED: PREG50CA PO (20:09)
[2016-11-02] MEDS ORDERED: PANT40TA4 PO (20:09)
[2016-11-02] MEDS ORDERED: TRAM50TA2 PO (20:09)
[2016-11-02] MEDS ORDERED: ASPI325T32 PO (20:09)
[2016-11-02] MEDS: ATORVASTATIN 10 MG TAB PO SCH (20:51)
[2016-11-03] MEDS: traMADol 50 MG TAB PO SCH ×2 (00:02→05:52)
[2016-11-03] MEDS: LACTATED RINGER'S 1,000 ML IV SCH ×2 (00:04→07:15)
[2016-11-03 05:18] LABS: HEMATOCRIT 33.2 % (37.0-47.0); HEMOGLOBIN 11.2 g/dl (12.0-16.0)
[2016-11-03] MEDS: PANTOPRAZOLE (EC) 40 MG TAB PO SCH (05:52)
[2016-11-03 06:03] LABS: CALCIUM 7.5 mg/dl (8.4-10.2); CREATININE 1.06 mg/dl (0.44-1.00); POTASSIUM 4.2 mmol/L (3.5-5.1)
[2016-11-03 07:00] VITALS: BP 157/78; RESP 18
--- NOTE | 2016-11-03 08:33 | PN ---
Date/Time of Note Date/Time of Note DATE: 11/03/16 TIME: 08:32 Assessment/Plan Lines/Catheters IV Catheter Type (from Nrsg): Peripheral IV Kruse in Place (from Nrsg): No Assessment/Plan Assessment/Plan POD # 3. Stable. -D/C to home -Pain meds -Home PT -ASA/SCDs -F/u with me in 1 week Subjective 24 Hr Interval Summary Doing well. Ready to go home today. Exam/Review of Systems Vital Signs Vitals Vital Signs Date Time Temp Pulse Resp B/P Pulse Ox O2 Delivery O2 Flow Rate FiO2 11/03/16 07:00 98.7 68 18 157/78 100 10/31/16 21:30 Nasal Cannula 2.0 Intake and Output 11/02/16 11/02/16 11/03/16 15:00 23:00 07:00 Intake Total 1000 ml 1660 ml 550 ml Balance 1000 ml 1660 ml 550 ml Exam Free Text/Dictation Dressing dry Incision clean, dry, and intact without redness or drainage 5/5 Tibialis Anterior, EHL, Gastroc Soleus, Peroneals Normal sensation Palpable DP/PT, CR < 2 Sec No distal edema Results Result Diagram: 11/03/16 0455 11/03/16 0425 RADHA SANDOVAL MD Nov 03, 2016 08:33
--- NOTE | 2016-11-03 08:34 | CONS ---
Date/Time of Note Date/Time of Note DATE: 11/03/16 TIME: 08:32 Assessment/Plan Assessment/Plan Chief Complaint/Hosp Course Pt is now post op in recovery and medical consult has been requested following right knee repacement Problems: Additional Assessment/Plan 1. Stable post op right knee replacement, doing well 2. Hx hbp, controlled 3. Hx hypoparathryoidism, Ca noted, rev with family, to take calcium supplement tid for 5d and then cont bid Consultation Date/Type/Reason Admit Date/Time Oct 31, 2016 at 10:04 Initial Consult Date 10/31/16 Type of Consultation: medical post op Detailed Summary Respiratory: No cough, No shortness of breath Cardiovascular: No chest pain Gastrointestinal: constipation, other Genitourinary: no complaints Musculoskeletal: bone/joint pain (mild right knee pain) Exam/Review of Systems Vital Signs Vitals Vital Signs Date Time Temp Pulse Resp B/P Pulse Ox O2 Delivery O2 Flow Rate FiO2 11/03/16 07:00 98.7 68 18 157/78 100 10/31/16 21:30 Nasal Cannula 2.0 Intake and Output 11/02/16 11/02/16 11/03/16 15:00 23:00 07:00 Intake Total 1000 ml 1660 ml 550 ml Balance 1000 ml 1660 ml 550 ml Exam Neck: No jvd Respiratory: clear to auscultation Cardiovascular: regular rate and rhythm Gastrointestinal: soft Extremities: No edema (and no calf tend bilat) Results Result Diagram: 11/03/16 0455 11/03/16 0425 Results 24 hrs Laboratory Tests Test 11/03/16 04:25 11/03/16 04:55 Sodium Level 137 Potassium Level 4.2 Chloride Level 104 Carbon Dioxide Level 27 Anion Gap 10 Blood Urea Nitrogen 33 H Creatinine 1.06 H Glucose Level 89 Calcium Level 7.5 L Hemoglobin 11.2 L Hematocrit 33.2 L Medications Medications Current Medications Atorvastatin Calcium (Lipitor) 10 mg HS PO Last administered on 11/02/16 20:51 ; Admin Dose 10 MG; Start 10/31/16 at 21:00 Calcitriol 0.25 mcg 0.25 mcg BID PO Last administered on 11/02/16 20:51; Admin Dose 0.25 MCG; Start 10/31/16 at 21:00 Lactated Ringer's (Lr) 1,000 ml @ 125 mls/hr Q8H IV Last administered on 21:12; Admin Dose 125 MLS/HR; Start 10/31/16 at 16:04 Celecoxib (Celebrex) 200 mg DAILY PO Last administered on 11/02/16 09:08; Admin Dose 200 MG; Start 11/01/16 at 09:00 Tramadol HCl (Ultram) 50 mg Q6 PO Last administered on 11/03/16 05:52; Admin Dose 50 MG; Start 10/31/16 at 12:00; Stop 11/03/16 at 11:59 Oxycodone HCl (Roxicodone) 5 mg Q4H PRN PO PAIN LEVEL 1-3 Last administered on 11/02/16 16:26; Admin Dose 5 MG; Start 10/31/16 at 16:30 Oxycodone HCl (Roxicodone) 10 mg Q4H PRN PO PAIN LEVEL 4-7; Start 10/31/16 at 16:30 Hydromorphone HCl (Dilaudid) 1 mg Q3H PRN IV PAIN LEVEL 8-10; Start 10/31/16 at 16:30 Ondansetron HCl (Zofran Inj) 4 mg Q6H PRN IV NAUSEA AND/OR VOMITING; Start at 16:30 Bisacodyl (Dulcolax Supp) 10 mg Q12H PRN [place] CONSTIPATION; Start 10/31/16 at 16: 30 Magnesium Hydroxide (Milk Of Mag) 30 ml BID PRN PO CONSTIPATION; Start at 16:30 Sodium Biphosphate/ Sodium Phosphate (Fleet Enema) 133 ml DAILY PRN [place] CONSTIPATION; Start 10/31/16 at 16:30 Docusate Sodium (Colace) 100 mg BID PO Last administered on 11/02/16 20:51; Admin Dose 100 MG; Start 10/31/16 at 21:00 Diphenhydramine HCl (Benadryl) 25 mg Q6H PRN PO PRURITUS; Start 10/31/16 at 16: 30 Aspirin (Ecotrin) 325 mg BID PO Last administered on 11/02/16 20:52; Admin Dose 325 MG; Start 11/01/16 at 09:00 Pantoprazole (Protonix Tab) 40 mg BID@06,18 PO Last administered on 11/03/16 05:52; Admin Dose 40 MG; Start 10/31/16 at 18:00 Pregabalin (Lyrica) 50 mg BID PO Last administered on 11/02/16 20:52; Admin Dose 50 MG; Start 10/31/16 at 21:00 Metoprolol Succinate (Toprol Xl) 25 mg BID PO Last administered on 11/02/16 20 :52; Admin Dose 25 MG; Start 10/31/16 at 21:00 Calcium Carbonate (Oyster Shell Calcium) 1.25 gm TID PO Last administered on 20:51; Admin Dose 1.25 GM; Start 11/01/16 at 09:00 CRISTAL HAWKINS MD Nov 03, 2016 08:34
[2016-11-03] MEDS ORDERED: HYDR-3605 PO (08:37)
[2016-11-03] MEDS: CELECOXIB 200 MG CAP PO SCH (08:44)
[2016-11-03] MEDS: CALCIUM CARBONATE 1.25 GM TAB PO SCH (08:44)
[2016-11-03] MEDS: CALCITRIOL 0.25 MCG CAP PO SCH (08:45)
[2016-11-03] MEDS: DOCUSATE SODIUM 100 MG CAP PO SCH (08:45)
[2016-11-03] MEDS: PREGABALIN 50 MG CAP PO SCH (08:45)
[2016-11-03] MEDS: ASPIRIN (EC) 325 MG TAB PO SCH (08:45)
[2016-11-03] MEDS: METOPROLOL (XL) 25 MG TAB PO SCH (08:46)
[2016-11-03] MEDS ORDERED: HYDROCODONE/APAP (7.5/325) TAB PO PRN ×2 (09:00)
== END 2016-11-03 11:48 | disposition home or self-care (01) | DRG 470 ==
LOC: REC 10:04 → MS1 18:05
PROVIDERS: ADMIT Orthopaedic Surgery; ATTEND Orthopaedic Surgery
PROC: 0SRC0J9 Replacement of Right Knee Joint with Synthetic Substitute, Cemented, Open Approach (ICD-10-PCS; principal; 2016-11-01)
DX: M17.11 Unilateral primary osteoarthritis, right knee (principal); E20.9 Hypoparathyroidism, unspecified; Z96.652 Presence of left artificial knee joint; Z96.643 Presence of artificial hip joint, bilateral
CPT/HCPCS: 73560; 80048; 81001; 83735; 84100; 85014; 85018; 86850; 86900; 86901; 86920; 87081; 87086; 88304; 88311; 97110; 97116; 97162; 97167; 97530; C1776; C9290; J0131; J0171; J0690; J0697; J0735; J1100; J1885; J2175; J2250; J2274; J2405; J2765; J3010; J3370; J3475; J7120

== ENCOUNTER → 2016-11-10 | Outpatient (CLI) | payer MEDICARE, BC ==
[~2016-11-10] MED LIST changes: +ASPI325T32 PO; +CALC0.255 PO; -CALC0.5C4 PO; +CALC500T11 PO; -CALC600T11 PO; -DEXAMETHASONE 4 MG/ML 1 ML INJ ONE; +HYDR-3605 PO; -MAGN400T22 PO; -MULT1CAP20 PO; +PANT40TA4 PO; +PREG50CA PO; +TRAM50TA2 PO; -UBID1CAP25 PO; -VIT1CAPS15 PO
--- NOTE | 2016-11-10 12:31 | PN ---
Date/Time of Note Date/Time of Note DATE: 11/10/16 TIME: 12:25 Assessment/Plan VTE Prophylaxis VTE Prophylaxis Intervention: ambulation, other Assessment/Plan Chief Complaint/Hosp Course 10 days status post right total knee arthroplasty Problems: Assessment/Plan The patient vimal were removed today and Steri-Strips were applied. She is to continue aspirin twice daily for DVT prophylaxis. She is also to continue physical therapy with home health. Given the amount of soft tissue swelling to her bilateral lower extremity, we will obtain a venous Doppler, to rule out DVT. The patient does have some left-sided lower extremity swelling as well which is likely secondary to systemic edema of her legs that is now exacerbated by recent surgery. However given the amount of swelling, we will rule out DVT. Additionally given the mild erythema on the lateral aspect of her right knee, will start her on Keflex 500 mg 4 times daily 1 week. In lieu of her ultrasound being negative, we will see her back in 1 week for repeat evaluation to check on her lower extremity swelling as well as her wound. Subjective 24 Hr Interval Summary Free Text/Dictation The patient presents today for her first postoperative evaluation. She is 10 days status post right total knee arthroplasty. She is doing well overall but does have significant right lower extremity swelling. She states her pain has been minimal. She denies any fevers, chills, erythema, or warmth. She is doing physical therapy with home health. Additionally she is taking aspirin twice daily for DVT prophylaxis. She presents today for her first postoperative evaluation. Exam/Review of Systems Exam On exam today, she is alert and oriented 4, and in no acute distress. She is using her frontwheel walker to ambulate. Examining excision demonstrates to be clean dry and intact. She has a mild erythema along the lateral aspect of her right knee. There is no significant warmth to touch. Range of motion is 080. She does have extensive right lower extremity swelling. Homans sign is negative. Compartments are otherwise soft. She is neurovascular intact distally. SHIVAM VILLALOBOS PA-C Nov 10, 2016 12:31
--- NOTE | 2016-11-10 14:54 | RADRPT ---
PROCEDURE: Right knee radiographs. CLINICAL INDICATION: Right knee pain. Postop. TECHNIQUE: Two views. Frontal and lateral. COMPARISON: 10/31/2016. FINDINGS: There is no fracture or dislocation. Anterior skin vimal are once again noted. The surgical drain has been removed. There is a total right knee arthroplasty which appears satisfactory. There is no lytic or blastic lesion. There is no joint effusion. IMPRESSION: 1. Satisfactory postoperative appearance of the right knee. RPTAT: QQ .Denny Harris MD, MD Date Time Electronically viewed and signed by .Denny Harris MD, on 11/10/2016 14:53 .R/
== END | disposition home or self-care (01) ==
LOC: HKI 10:56
PROVIDERS: ATTEND Orthopaedic Surgery
DX: Z47.1 Aftercare following joint replacement surgery (principal); Z96.651 Presence of right artificial knee joint; R22.43 Localized swelling, mass and lump, lower limb, bilateral

== ENCOUNTER → 2016-11-17 | Outpatient (CLI) | payer MEDICARE, BC | END | disposition home or self-care (01) | LOC: HKI 11:01 | PROVIDERS: ATTEND Orthopaedic Surgery | DX: Z47.1 Aftercare following joint replacement surgery (principal); Z96.651 Presence of right artificial knee joint; M17.11 Unilateral primary osteoarthritis, right knee | CPT/HCPCS: G0463 ==

== ENCOUNTER → 2016-12-01 | Outpatient (CLI) | payer MEDICARE, BC ==
[~2016-12-01] MED LIST changes: +CALC0.5C4 PO; +CALC600T11 PO; +MAGN400T22 PO; +MULT1CAP20 PO; +UBID1CAP25 PO; +VIT1CAPS15 PO
== END | disposition home or self-care (01) ==
LOC: HKI 11:08
PROVIDERS: ATTEND Orthopaedic Surgery
DX: M17.11 Unilateral primary osteoarthritis, right knee (principal); Z47.1 Aftercare following joint replacement surgery; Z96.651 Presence of right artificial knee joint